=== PATIENT | male | born 1975 | race Caucasian/White ===

== ENCOUNTER → 2017-07-19 | Outpatient (CLI) | payer BC ==
[~2017-07-19] MED LIST: ADVIL200 MG PO; NEXIUM40 MG PO
== END | disposition home or self-care (01) ==
LOC: JMC 07:30
PROC: 07DR3ZX Extraction of Iliac Bone Marrow, Percutaneous Approach, Diagnostic (ICD-10-PCS; principal; 2017-07-19)
DX: D47.3 Essential (hemorrhagic) thrombocythemia (principal)
CPT/HCPCS: 38221; 96372